=== PATIENT | male | born 1945 | race Caucasian/White ===

== ENCOUNTER 2020-07-10 17:58 | Emergency (ER) | payer OTHER ==
[~2020-07-10] VITALS: Ht 190.5 cm; Wt 77.1 kg
[2020-07-10 17:58] VITALS: BP 138/71
--- NOTE | 2020-07-10 17:58 | NUR ---
BIBA TO BED 10
--- NOTE | 2020-07-10 17:59 | NUR ---
74 Y/O MALE BIBA. PT WAS BEING TRANSFERRED FROM [facility] TO [facility] AND PT WAS REJECTED AT [facility] BECAUSE PT ARRIVED ON DIFFERENT VENT SETTINGS THAN WHAT WAS GIVEN DURING REPORT. PT SPO2 WAS 92%, HR 105, RR 31 AND WAS DENIED FOR "BEING UNSTABLE". MEDIC WAS ABLE TO INCREASE SPO2 TO 97% AND WAS STILL DENIED. PT IS TRACH TO VENT, G TUBE AND SOTO. PT HAS IV- 20 G TO R WRIST. PER MEDIC, BASELINE IS A/O X0 WITH GCS 3- UNRESPONSIVE TO ALL STIMULI. BED IN LOWEST POSITION, BRAKES LOCKED, X2 SIDERAILS FOR SAFETY. PT ON [employer] [facility]:SEE PHYSICAL CHART FOR EXTENSIVE HX NKDA
--- NOTE | 2020-07-10 18:00 | NUR ---
DR ROSARIO AT BEDSIDE
--- NOTE | 2020-07-10 18:01 | NUR ---
RT AT BEDSIDE VENT SETTINGS: A/C RATE 24, VT 500, PEEP 5 WITH FIO2 28%
--- NOTE | 2020-07-10 18:30 | NUR ---
RAD AT BEDSIDE
--- NOTE | 2020-07-10 18:44 | NUR ---
SPOKE TO ELIANA AT [facility] AND NOTIFIED THEM THAT PATIENT HAD AN O2 SAT OF 93% ON THE VENTILATOR AND DR. ROSARIO WAS OKAY DISCHARGING HIM BACK TO [facility]. ELIANA WILL REACH OUT TO FACILITY AND SEE IF IT'S OKAY WITH THEM AND IF SO WILL ARRANGE TRANSPORTATION.
[2020-07-10] MEDS ORDERED: VANCOMYCIN 1,000 MG in DEXTROSE 5% 250 ML IV ONE (18:55)
[2020-07-10] MEDS ORDERED: PIPERACILLIN/TAZOBACTAM 3.375 GM in DEXTROSE 5% 50 ML IV ONE (18:55)
--- NOTE | 2020-07-10 19:05 | NUR ---
SPOKE W/ EVAN FROM [facility] - WILL HAVE ADMISSION TEAM CALL FOR AUTHORIZATION OF ADMISSION.
--- NOTE | 2020-07-10 19:25 | NUR ---
RECEIVED REPORT FROM BRIANA RODRIGUEZ FOR CONTINUITY OF CARE
--- NOTE | 2020-07-10 19:27 | NUR ---
REPORT GIVEN TO TOMMY RODRIGUEZ, TRANSFER OF CARE AT THIS TIME
[2020-07-10 19:38] LABS: BASOPHILS % (AUTO) 0.2 % (0.0-2.0); EOSINOPHILS # (AUTO) 0.4 K/uL (0-0.4); EOSINOPHILS % (AUTO) 2.8 % (0.0-4.0); HEMATOCRIT 30.8 % (36-52); HEMOGLOBIN 9.7 g/dL (12.0-18.0); LYMPHOCYTES # (AUTO) 0.9 K/uL (2.0-11.5); LYMPHOCYTES % (AUTO) 6.7 % (20.5-51.1); MEAN CORPUSCULAR HEMOGLOBIN 29 pg (27-31); MEAN CORPUSCULAR HGB CONC 31 g/dL (33-37); MEAN CORPUSCULAR VOLUME 92.8 fL (80-94); MONOCYTES % (AUTO) 7.2 % (1.7-9.3); NEUTROPHILS # (AUTO) 11.7 K/uL (1.8-7.7); NEUTROPHILS % (AUTO) 83.1 % (42.2-75.2); PLATELET COUNT (AUTO) 382 K/uL (140-450); RED BLOOD CELL COUNT(AUTO) 3.32 MIL/uL (4.20-6.10); RED CELL DISTRIBUTION WIDTH 17.2 % (11.6-13.7)
[2020-07-10 19:48] LABS: PROTHROMBIN TIME 9.5 secs (10.8-13.4)
[2020-07-10] MEDS ORDERED: PIPERACILLIN/TAZOBACTAM 3.375 GM VIAL IV ONE (19:48)
[2020-07-10 20:03] LABS: ALBUMIN 2.2 g/dL (3.4-5.0); ANION GAP 10.7 (8-16); ASPARTATE AMINOTRANSFERASE 34 U/L (15-37); CARBON DIOXIDE 36.8 mmol/L (21-32); CHLORIDE 110 mmol/L (98-107); POTASSIUM 3.5 mmol/L (3.5-5.1); SODIUM SERUM 154 mmol/L (136-145); TOTAL BILIRUBIN 0.4 mg/dL (0.0-1.0)
[2020-07-10 20:04] LABS: GLUCOSE 451 mg/dL (74-106); UREA NITROGEN, BLOOD 121 mg/dL (7-18)
[2020-07-10] MEDS ORDERED: NACL 0.9% 2,000 ML IV ONE (20:05)
--- NOTE | 2020-07-10 21:00 | NUR ---
RECEIVED A CALL FROM DR. DAS; VENT SETTINGS REPORT FIO2: 30% DR. DAS CONFIRMED THAT PT IS OKAY TO GO TO [facility].
--- NOTE | 2020-07-10 21:50 | NUR ---
SPOKE TO MICHAEL NGUYEN FOR TRANSFER REPORT TO [facility]
[2020-07-10 22:10] VITALS: BP 138/71
--- NOTE | 2020-07-10 22:10 | NUR ---
Patient to be transferred to [facility]. Is being transferred due to INSURANCE. Receiving facility has accepting physician and available space. ER physician has signed transfer form. Patient or responsible green party has agreed to transfer and signed form. Patient belongings inventoried and will be sent with patient. Copy of nursing notes, lab reports, EKG, Physicians Orders and X-rays to be sent with patient. Report called to at receiving facility. [facility] ambulance service has been called for transfer. ETA is 10-15MINS.
== END 2020-07-10 22:10 | disposition short-term general hospital (02) ==
LOC: MED 17:58
DX: R73.9 Hyperglycemia, unspecified (principal); R94.4 Abnormal results of kidney function studies; D72.829 Elevated white blood cell count, unspecified; N18.9 Chronic kidney disease, unspecified; Z99.11 Dependence on respirator [ventilator] status; Z20.822 Contact with and (suspected) exposure to COVID-19
CPT/HCPCS: 36415; 71045; 80053; 83605; 83880; 85025; 85610; 87040; 87426; 93005; 96365; 99291; J2543